=== PATIENT | female | born 1950 | race Caucasian/White ===

== ENCOUNTER 2023-03-04 12:59 | Outpatient (OUT) | payer MEDICARE, SELFPAY ==
--- NOTE | 2023-03-04 13:02 | MM_ITS ---
Patient: BABAR SALAZAR Exam Date: 03/04/2023 : 1950 Gender:F Ordering : Non-Staff Physician Admission #: [id number] Family : HAIM SALAS Order #: [id number] CLICK HERE TO VIEW EXAM RADIOLOGY REPORT PROCEDURE: MM TOMOSYNTHESIS SCREENING BI COMPARISON: MM TOMOSYNTHESIS SCREENING BI, 01/11/2021. MM TOMOSYNTHESIS SCREENING BI, 11/16/2019. INDICATIONS: Screening Calculator Name NCI Breast Cancer Risk Assessment Tool 5 Year Breast Cancer Risk 1.30% Lifetime Breast Cancer Risk 3.90% Personal Breast Cancer No Personal Ovarian Cancer No Treatments None Family Cancers None LOCATION: [facility] BREAST COMPOSITION: Scattered areas fibroglandular density. FINDINGS: DIAGNOSTIC CATEGORY 2--BENIGN FINDING: RIGHT BREAST: No significant suspicious finding. Stable chronic small calcification and surrounding asymmetry within central breast. Stable biopsy marker clip within upper-outer quadrant. No significant change has occurred. LEFT BREAST: No significant suspicious finding. No significant change has occurred. RECOMMENDATIONS: ROUTINE MAMMOGRAM AND CLINICAL EVALUATION IN 12 MONTHS. PLEASE NOTE: A NORMAL MAMMOGRAM DOES NOT EXCLUDE THE POSSIBILITY OF BREAST CANCER. A CLINICALLY SUSPICIOUS PALPABLE LUMP SHOULD BE BIOPSIED. Dictated by: Ajay Mckinnon M.D. on 03/05/2023 at 13:20 Approved by: Ajay Mckinnon M.D. on 03/05/2023 at 13:30
== END 2023-03-04 13:00 | disposition home or self-care (01) ==
PROVIDERS: PCP Internal Medicine
DX: Z12.31 Encounter for screening mammogram for malignant neoplasm of breast (principal)
CPT/HCPCS: 77063; 77067

== ENCOUNTER 2023-08-26 14:54 | Outpatient (OUT) | payer MEDICARE, SELFPAY | END 2023-08-26 14:55 | disposition home or self-care (01) | LOC: PST 14:54 | PROVIDERS: PCP Internal Medicine; Visit Provider Surgery | DX: Z01.818 Encounter for other preprocedural examination (principal); R19.5 Other fecal abnormalities ==

== ENCOUNTER 2023-09-03 07:41 | Day surgery (SDC) | payer MEDICARE, OTHER, SELFPAY ==
--- OUTSIDE RECORDS SUMMARY | 2023-09-03 07:47 | XMS_ITS | CCD ---
Author Name Unknown Address [address] [place] [address] Organization [facility] Care Team Providers Care [employer] Developer Name Role Phone TANNA QUEZADA Unavailable Unavailable TANNA QUEZADA Unavailable Unavailable VALMEHRDAD AMEZCUA Unavailable Unavailable ANISHA IBANEZ Unavailable Unavailable TANNA QUEZADA Unavailable Unavailable AJAY MCKINNON Unavailable Unavailable PHYSICIAN, DEFAULT Unavailable Unavailable PHYSICIAN, DEFAULT Unavailable Unavailable CASTRO MCCONNELL Unavailable Unavailable MEHRDAD SALAS Unavailable Unavailable CASTRO MCCONNELL Unavailable Unavailable MEHRDAD SALAS Unavailable Unavailable CASTRO MCCONNELL Unavailable Unavailable MEHRDAD SALAS Unavailable Unavailable Bao Gorman DO, Charles L Primary Care Provider MATHEW ALLEN Attending Unavailable MEHRDAD SALAS JR Referring Unavailable MEHRDAD SALAS JR Primary Care Unavailable MEHRDAD SALAS JR Referring Unavailable MEHRDAD SALAS JR Primary Care Unavailable Medications Current Medications Medication Drug Class(es) Dates Sig (Normalized) Sig (Original) aspirin 81 mg delayed release oral tablet (1 source) Platelet Aggregation Inhibitor, Nonsteroidal Anti-inflammatory Drug take 1 tablet by mouth in the morning aspirin 81 mg Take 1 tablet (81 mg total) by mouth in the morning. 0 Active Biotin (1 source) take 5000 ug by mouth in the morning BIOTIN ORAL Take 5,000 mcg by mouth in the morning. 0 Active cholecalciferol 0.05 mg oral capsule (1 source) Vitamin D take 1 capsule by mouth in the morning cholecalciferol, vitamin D3, 2,000 units capsule Take 1 capsule (2,000 Units total) by mouth in the morning. 0 Active 0.5 ml dulaglutide 3 mg/ml auto-injector (1 source) GLP-1 Receptor Agonist inject 1.5 mg by subcutaneous injection every week dulaglutide (TRULICITY) 1.5 mg/0.5 mL pen injector Inject 1.5 mg under the skin once a week. 0 Active lansoprazole 15 mg delayed release oral capsule (1 source) Proton Pump Inhibitor take 1 capsule by mouth in the morning lansoprazole (PREVACID) 15 mg capsule Take 1 capsule (15 mg total) by mouth in the morning. 0 Active levothyroxine sodium 0.125 mg oral tablet (2 sources) l-Thyroxine Start: 08-08-2016 take 1 tablet by mouth in the morning levothyroxine (SYNTHROID, LEVOTHROID) 125 MCG tablet Take 1 tablet (125 mcg total) by mouth in the morning. 0 08/08/2016 Active Magnesium (2 sources) Start: 12-23-2017 take 1 tablet by mouth twice daily as needed for headache magnesium 200 mg tablet Indications: Headache behind the eyes 1 tablet po bid as needed for headache. 60 each 2 12/23/2017 Active montelukast 10 mg oral tablet (1 source) Leukotriene Receptor Antagonist take 1 tablet by mouth once daily montelukast (SINGULAIR) 10 mg tablet Take 1 tablet (10 mg total) by mouth nightly. 0 Active omeprazole 20 mg delayed release oral capsule (2 sources) Proton Pump Inhibitor take 1 capsule by mouth in the morning omeprazole (PriLOSEC) 20 mg capsule Take 1 capsule (20 mg total) by mouth in the morning. 0 Active ospemifene 60 mg oral tablet (1 source) take 1 tablet by mouth every other day ospemifene (OSPHENA) 60 mg tablet Take 60 mg by mouth every other day. 0 Active peg 3350-sod sulf,fyxm-muc-llr 178.7-7.3-0.5 gram recon soln (1 source) Start: 08-07-2023 End: 08-08-2023 peg 3350-sod sulf,ipwx-jld-sec 178.7-7.3-0.5 gram recon soln Indications: Positive colorectal cancer screening using Cologuard test Take 1 kit by mouth once daily for 1 dose. Please see instructional sheet given by physicians office. 1 each 0 08/07/2023 08/08/2023 Active potassium 99 mg extended release oral tablet (1 source) take 99 mg by mouth in the morning POTASSIUM ORAL Take 99 mg by mouth in the morning. 0 Active rosuvastatin calcium 40 mg oral tablet (1 source) HMG-CoA Reductase Inhibitor take 1 tablet by mouth in the morning rosuvastatin (CRESTOR) 40 mg tablet Take 1 tablet (40 mg total) by mouth in the morning. 0 Active vitamin b12 1 mg oral tablet (1 source) Vitamin B12 take 1 tablet by mouth in the morning cyanocobalamin (vitamin B-12) 1000 MCG tablet Take 1 tablet (1,000 mcg total) by mouth in the morning. 0 Active vitamin E acetate (VITAMIN E ORAL) (1 source) vitamin E acetat e (VITAMIN E ORAL) Take 400 Int'l Units/day by mouth in the morning. 0 Active Zinc (1 source) take 50 mg by mouth in the morning ZINC ORAL Take 50 mg by mouth in the morning. 0 Active Completed/Discontinued Medications Medication Drug Class(es) Dates Sig (Normalized) Sig (Original) baclofen 10 mg oral tablet (2 sources) gamma-Aminobutyric Acid-ergic Agonist Start: 11-17-2018 End: 08-07-2023 take 1 tablet by mouth four times daily baclofen (LIORESAL) 10 mg tablet Indications: Hemifacial spasm Take 1 tablet po 4 times a day. 120 tablet 2 11/17/2018 08/07/2023 Discontinued (Discontinued by another clinician) 24 hr buPROPion hydrochloride 300 mg extended release oral tablet (2 sources) Aminoketone End: 08-07-2023 take 1 tablet by mouth once daily buPROPion XL (WELLBUTRIN XL) 300 mg 24 hr tablet Take 300 mg by mouth daily. 0 08/07/2023 Discontinued (Discontinued by another clinician) metFORMIN hydrochloride 500 mg oral tablet (2 sources) Biguanide End: 08-07-2023 take 1 tablet by mouth twice daily at mealtime metFORMIN (GLUCOPHAGE) 500 mg tablet Take 1 tablet by mouth 2 (two) times a day with meals. 0 08/07/2023 Discontinued (Discontinued by another clinician) pravastatin sodium 20 mg oral tablet (2 sources) HMG-CoA Reductase Inhibitor Start: 12-18-2017 End: 08-07-2023 take 1 tablet by mouth once daily pravastatin (PRAVACHOL) 20 mg tablet Take 20 mg by mouth daily. 0 12/18/2017 08/07/2023 Discontinued (Discontinued by another clinician) Problems Active Problems Problem Classification Problem Date Documented Date Episodic/Chronic Abdominal pain (4 sources) Right lower quadrant pain; Translations: [Unspecified abdominal pain] Onset: 11-18-19 Episodic Esophageal disorders (1 source) Gastro-esophageal reflux disease without esophagitis; Translations: [GERD WITHOUT ESOPHAGITIS] Onset: 11-20-19 Chronic External Injury - Natural / Environment (1 source) Exposure to other specified factors, initial encounter; Translations: [EXPOSURE OTHER SPEC FACTORS INITIAL] Onset: 11-20-19 Nausea and vomiting (1 source) Nausea; Translations: [NAUSEA] Onset: 11-20-19 Episodic Nonspecific chest pain (1 source) Chest pain, unspecified; Translations: [CHEST PAIN UNSPECIFIED] Onset: 11-20-19 Episodic Other aftercare (1 source) Other intermediate school teacher (current) drug therapy; Translations: [OTH CUSTODIAL CURRENT DRUG THERAPY] Onset: 11-20-19 Episodic Other gastrointestinal disorders (1 source) Stool DNA-based colorectal cancer screening positive; Translations: [Other fecal abnormalities] 08-07-2023 Episodic Other gastrointestinal disorders (1 source) Other fecal abnormalities; Translations: [Other fecal abnormalities] Onset: 08-07-19 Episodic Other lower respiratory disease (1 source) Shortness of breath; Translations: [SHORTNESS OF BREATH] Onset: 11-20-19 Episodic Other nervous system disorders (1 source) Clonic hemifacial spasm, bilateral; Translations: [Clonic hemifacial spasm, bilateral] Onset: 08-14-19 Episodic Sprains and strains (1 source) Strain of muscle, fascia and tendon of lower back, initial encounter; Translations: [STRAIN MUSC FASC TENDON LW BACK INT] Onset: 11-20-19 Episodic Thyroid disorders (1 source) Hypothyroidism, unspecified; Translations: [HYPOTHYROIDISM UNSPECIFIED] Onset: 11-20-19 Chronic Unclassified (1 source) Abnormal coagulation profile; Translations: [ABNORMAL COAGULATION PROFILE] Onset: 11-20-19 Episodic Unclassified (1 source) Pure hypercholesterolemia, unspecified; Translations: [PURE HYPERCHOLESTEROLEMIA UNSPEC] Onset: 11-20-19 Unclassified (1 source) Positive Cologuard Onset: 08-07-19 Past or Other Problems Problem Classification Problem Date Documented Da te Episodic/Chronic Headache, including migraine (1 source) Headache; Translations: [Headache] Onset: 01-30-2017 Episodic Mood disorders (2 sources) Mood disorders Onset: 10-27-2018 10-27-2018 Other nervous system disorders (1 source) Facial myokymia; Translations: [Facial myokymia] Onset: 01-30-2017 Episodic Unclassified (2 sources) Onset: 06-28-2019 06-28-2019 Results Test Name Value Interpretation Reference Range Facility CBC AUTO DIFFon 11-17-2017 Basophils Auto #/vol (Bld) 0.1 103/ul Normal 0.0-0.1 [facility] Comment on above: Performed By: #### C BC ####[facility] Tbpsbglmuw4199 [address] [place] Basophils/100 WBC Auto (Bld) 1.3 % Normal 0.2-2.0 [facility] Comment on above: Performed By: #### C BC ####[facility] [address] [place], [place] [address]Gerken [place] Eosinophils 0.4 103/ul Normal 0.0-0.7 [facility] Comment on above: Performed By: #### C BC ####[facility] [address] [place] [address] [place] Eosinophils/100 leukocytes 4.6 % Normal 0.9-7.0 [facility] Comment on above: Performed By: #### C BC ####[facility] [address] [place] [address] [place] Erythrocyte distribution width Auto Ratio (RBC) 12.6 % Normal 11.0-15.0 [facility] Comment on above: Performed By: #### C BC ####[facility] [address] [place], [place] [id number] [place] Erythrocytes (RBC) 4.04 106/ul Critically low 4.20-5.40 [facility] Comment on above: Performed By: #### C BC ####[facility] [address] [place] [id number] [place] Hematocrit (HCT) 36.6 % Normal 36.0-48.0 [facility] Comment on above: Performed By: #### C BC ####[facility] [address] [place], [place] [address]Gerken [place] Hemoglobin mass conc (Bld) 12.2 g/dL Normal 12.0-16.0 [facility] Comment on above: Performed By: #### C BC ####[facility] Ecqflmwxvt6393 [address] [place] IG # 0.04 10e3/ul Critically high 0.00-0.03 [facility] Comment on above: Performed By: #### C BC ####[facility] Achcnyhihv[address]370 [address] [place] IG % 0.5 % Normal 0.0-0.5 [facility] Comment on above: Performed By: #### C BC ####[facility] [address] [place] [address] [place] Lymphocytes 2.8 103/ul Normal 1.2-3.8 [facility] Comment on above: Performed By: #### C BC ####[facility] [address] [place], [place] [address]en Lymphocytes/100 leukocytes 33.7 % Normal 20.5-60.0 [facility] Comment on above: Performed By: #### C BC ####[facility] [address] [place] [address] [place] MANUAL DIFF REQ NO Normal [facility] Comment on above: Performed By: #### C BC ####[facility] [address]pe[address] [place], [place] [address]en MCH 30.2 pg Normal 26.7-34.0 [facility] Comment on above: Performed By: #### C BC ####[facility] [address]oun[address]isms[address] [place] [address] [place] MCHC mass conc (RBC) 33.3 g/dL Normal 29.9-35.2 [facility] Comment on above: Performed By: #### C BC ####[facility] [address] [place] [address] [place] MCV 90.6 fL Normal 81.0-99.0 [facility] Comment on above: Performed By: #### C BC ####[facility] [address]dieg[address] [place], [place] [address]Ctfddw [place] Monocytes 0.8 103/ul Normal 0.3-0.8 [facility] Comment on above: Performed By: #### C BC ####[facility] Brsecghkrs9259 [place], [place] [address]Tarewv [place] Monocytes/100 leukocytes 10.1 % Normal 1.7-12.0 [facility] Comment on above: Performed By: #### C BC ####[facility] [address]uvlecxauv9666 [place], [place] [address]Nyhihi [place] Neutrophils 4.1 103/ul Normal 1.4-6.5 [facility] Comment on above: Performed By: #### C BC ####[facility] [address]jjn4305 [place], [place] [address]Sdfawi [place] Neutrophils/100 WBC Auto (Bld) 49.8 % Normal 43.0-75.0 [facility] Comment on above: Performed By: #### C BC ####[facility] Ktvlfsjuue3685 [place], [place] [address]Qaldam [place] Platelet mean volume (PMV) 9.5 fL Normal 9.5-13.5 [facility] Comment on above: Performed By: #### C BC ####[facility] Trronfream4182 [place], [place] [address]Abxchs [place] Platelets 300 103/ul Normal 150-450 [facility] Comment on above: Performed By: #### C BC ####[facility] Fldkusnrps6244 [place], [place] [address]Xuosbk [place] WBC (Leukocytes) 8.2 103/ul Normal 4.0-11.0 [facility] Comment on above: Performed By: #### C BC ####[facility] I[address]acsavmm3660 [place], [place] [address] [place] CT ABD/PELVIS WO CONon 11-17 CT ABD/PELVIS WO CON [address] [place] [address] Patient: EMILY MELGARLo Exam Date: 11/17/2017DOB: 1950 Gender:F : DR TANNA QUEZADA D.O. Admission #: [id number] : DR MEHRDAD SALAS Order #: [id number] HERE TO VIEW EXAM RADIOLOGY REPORT PROCEDURE: CT ABDOMEN AND PELVIS WITHOUT CONTRAST COMPARISON: None. INDICATIONS: Acute posterior right lower quadrant pain, nausea, shortness of breath TECHNIQUE: Axial, Coronal, and Sagittal images were created without IV contrast. DOSE: 731 mGycm FINDINGS: LUNG BASES: No visible pulmonary or pleural disease. LIVER: No enlargement, atrophy, abnormal density, or significant focal lesion. BILIARY: No visible dilatation or calcification. PANCREAS: No lesion, fluid collection, ductal dilatation, or atrophy. SPLEEN: No enlargement or focal lesion. ADRENALS: No mass or enlargement. KIDNEYS: No mass, obstruction, or calcification. BOWEL/MESENTERY: Prior colon resection and anastomosis. No visible mass, obstruction, or bowel wall thickening. Prior appendectomy. Unremarkable stomach and small bowel.AORTA/VASCULAR: No aneurysm or dissection. RETROPERITONEUM: No mass or adenopathy. LYMPH NODES: No adenopathy. URINARY BLADDER: No visible focal wall thickening, lesion, or calculus. PELVIC ORGANS: Hysterectomy.ABDOMINA L WALL: No mass or hernia. BONES: No bone lesion or fracture. OTHER: Negative. CONCLUSION: 1. No acute or suspicious findings to account for the patient's symptoms. Dictated by: Ajay Mckinnon M.D. on 11/17/2017 at 19:34 Approved by: Ajay Mckinnon M.D. on 11/17/2017 at 19:45 Normal [facility] CTA CHEST W CONon 11-17-2017 CTA CHEST W CON [address] [place] [address] Patient: EMILY MELGAR Exam Date: 11/17/2017DOB: 1950 Gender:F : DR ANISHA IBANEZ Admission #: [id number] : DR TANNA QUEZADA D.O. Order #: [id number] HERE TO VIEW EXAM RADIOLOGY REPORT PROCEDURE: CTA CHEST WITHOUT AND WITH CONTRAST COMPARISON: XR CHEST 2 V, 11/17/2017. INDICATIONS: Acute right posterior chest pain and shortness of breath for three days TECHNIQUE: Multi-planar CT images were created with IV contrast. Axial, Coronal, and Sagittal images. DOSE: 330mGycm;53cc Omnipaque 350 FINDINGS: VASCULATURE: No pulmonary embolism or abnormal opacity.LUNGS: Incidental calcified granuloma within the lingula. No visible pulmonary disease. PLEURA: No mass, effusion, or pneumothorax. SEBASTIAN: No mass or adenopathy. MEDIASTINUM: No mass or adenopathy. CARDIAC: No enlargement, pericardial effusion, or pericardial thickening.AORTA: No aneurysm or dissection. CHEST WALL: No mass or axillary adenopathy. BONES: No bone lesion or fracture. LIMITED ABDOMEN: No suspicious findings. Limited images of the upper abdomen.OTHER: Negative. CONCLUSION: 1. No pulmonary embolism.2. No pulmonary infiltrate or suspicious process to account for the patient's symptoms. Dictated by: Ajay Mckinnon M.D. on 11/17/2017 at 21:57 Approved by: Ajay Mckinnon M.D. on 11/17/2017 at 22:01 Normal [facility] D-DIMERon 11-17-2017 D-DIMER COMMENTS SEE BELOW Normal [facility] Comment on above: Result Comment: Incr eases in D-Dimer concentration observed with thromboembolic events can be variable due to localization, size, and age of the thrombus. Therefore, a thromboembolic event cannot be diagnosed with certainty on the basis of the reference range. D-Dimers may also be elevated for a variety of disorders including: advanced age, , coronary disease, cancer, liver disease, infection, inflammation, hematoma, DIC, trauma, post-surgery, diabetes, thrombolytic or anticoagulant therapy, stress, and generalizd hospitalization. Performed By: #### D DIM ####[facility] [address]23[address] [place], [place] [address]YbrztzChristel [place] Fibrin D-dimer FEU 0.89 ug/mL Critically high 0.19-0.50 [facility] Comment on above: Result Comment: Test Repeated. Critical Value Verified Performed By: #### D DIM ####[facility] Mqpncyshzq4448 [place], [place] [address]TfjvuxChristel [place] ER URINE PROFILEon 8 Bilirubin (total) Negative Normal NEGATIVE [facility] Comment on above: Performed By: #### ELEONROA CURTIS ####[facility] Qhxlwzhchj36[address] [place] BLOOD Negative Normal NEGATIVE [facility] Comment on above: Performed By: #### ELEONORA CURTIS ####[facility] [address] [place] [id number] [place] ERUAHD A micrscopic examination will be performed if indicated. Normal [facility] Comment on above: Performed By: #### ELEONORA CURTIS ####[facility] Zpgyvtiivn1652 [address] [place] Glucose mass conc Negative Normal NEGATIVE [facility] Comment on above: Performed By: #### ELEONORA CURTIS ####[facility] [address] [place] [address] [place] pH of blood 6.5 [pH] Normal 5-9 [facility] Comment on above: Performed By: #### ELEONORA CURTIS ####[facility] [address] [place] [address] [place] Protein Negative Normal [facility] Comment on above: Performed By: #### ELEONORA CURTIS ####[facility] [address] [place] [address] [place] SPEC GRAVITY <=1.005 Normal 1.005-<=1.025 [facility] Comment on above: Performed By: #### ELEONORA CURTIS ####[facility] Stmudvnisi[address]337 [address] [place] UR MICRO IND INDICATED Normal [facility] Comment on above: Performed By: #### ELEONORA CURTIS ####[facility] Shxxseaoad4970 [address] [place] Urine, clarity CLEAR Normal [facility] Comment on above: Performed By: #### ELEONORA CURTIS ####[facility] Zllebxbksd4827 [address] [place] Urine, color LT. YELLOW Normal YELLOW [facility] Comment on above: Performed By: #### Thao NAVARRO UMICRO ####[facility] [address] [place] [id number] [place] Urine, ketones presence Negative Normal NEGATIVE [facility] Comment on above: Performed By: #### Thao NAVARRO UMICRO ####[facility] [address] [place] [id number] Valdesen Urine, nitrite presence Negative Normal NEGATIVE [facility] Comment on above: Performed By: #### E MAME NAVARROICRO ####[facility] [address] [place] [address]Christel [place] Urine, urobilinogen 0.2 {Terell'U}/dL Normal [facility] Comment on above: Performed By: #### GERTRUDE CURTISRO ####[facility] Ibkolbqthp3155 [address] [place] WBC (Leukocytes) TRACE Normal NEGATIVE [facility] Comment on above: Performed By: #### GERTRUDE CURTISRO ####[facility] [address] [place] [address]Christel [place] LIPASEon 11-17-2017 Lipase 53.0 U/L Normal 23.0-300.0 [facility] Comment on above: Performed By: #### L IPA, CMP ####[facility] Ueujitgtyz[address]687 [address] [place] PROF 14(COMP METB)on 018 Alanine aminotransferase (ALT) 22 U/L Normal 9-52 [facility] Comment on above: Performed By: #### L IPA, CMP ####[facility] Fputowamdr9405 [address] [place] Albumin 4.5 g/dL Normal 3.5-5.0 [facility] Comment on above: Performed By: #### L IPA, CMP ####[facility] Fsoccelthb5278 [address] [place] Albumin/Globulin Ratio 1.6 {ratio} Normal [facility] Comment on above: Performed By: #### L IPA, CMP ####[facility] Mlbyiuxgzo[address]18 [address] [place] Alkaline phosphatase (ALP) 74 U/L Normal 38-126 [facility] Comment on above: Performed By: #### L IPA, CMP ####[facility] Zneddpovyp8229 [address] [place] Anion gap 11.1 mmol/L Normal [facility] Comment on above: Performed By: #### L IPA, CMP ####[facility] Mtmtqcttvb1040 [address] [place] Aspartate aminotransferase (AST) 18 U/L Normal 14-36 [facility] Comment on above: Performed By: #### L IPA, CMP ####[facility] [address] [place] [address] [place] Bilirubin Ql (U) 0.4 mg/dL Normal 0.2-1.3 [facility] Comment on above: Performed By: #### L IPA, CMP ####[facility] [address] [place] [address] [place] BUN/Creatinine Ratio 12.7 mg/mg Normal [facility] Comment on above: Performed By: #### L IPA, CMP ####[facility] [address] [place] [address] [place] Calcium 9.9 mg/dL Normal 8.4-10.2 [facility] Comment on above: Performed By: #### L IPA, CMP ####[facility] Xghezpvodo4005 [address] [place] Chloride 99 mmol/L Normal 98-107 [facility] Comment on above: Performed By: #### L IPA, CMP ####[facility] [address] [place] [address] [place] CO2 30.0 mmol/L Normal 22.0-30.0 [facility] Comment on above: Performed By: #### L IPA, CMP ####[facility] [address] [place] [address] [place] Creatinine 0.63 mg/dL Normal 0.52-1.04 [facility] Comment on above: Performed By: #### L IPA, CMP ####[facility] [address] [place] [id number] [place] eGFR (non-black) mL/min/{1.73_m2} Normal >=60 Th [facility] Comment on above: Performed By: #### L IPA, CMP ####[facility] Zjwxyioczz0703 [address] [place] Globulin 2.8 g/dL Normal [facility] Comment on above: Performed By: #### L IPA, CMP ####[facility] Amjdggmxiy0279 [address] [place] Glucose mass conc 98 mg/dL Normal 74-106 [facility] Comment on above: Performed By: #### L IPA, CMP ####[facility] Jthxyeytna[address]62 [address] [place] Potassium molar conc 4.3 mmol/L Normal 3.4-5.0 [facility] Comment on above: Performed By: #### L IPA, CMP ####[facility] Rdorxipeqy[address]05 [address] [place] Protein 7.3 g/dL Normal 6.1-8.2 [facility] Comment on above: Performed By: #### L IPA, CMP ####[facility] Wgwtwomqcu3960 [address] [place] Sodium 136 mmol/L Critically low 137-145 [facility] Comment on above: Performed By: #### L IPA, CMP ####[facility] Vfbpfaiudq[address]22 [address] [place] Urea nitrogen 8.0 mg/dL Normal 7.0-17.0 [facility] Comment on above: Performed By: #### L IPA, CMP ####[facility] Paqnmsybov[address] [place] URINE MICROSCOPIC ONLYon CAST NONE SEEN Normal NONE SEEN [facility] Comment on above: Performed By: #### GERTRUDE CURTISRO ####[facility] [address]ijscre2320 [place], [place] [address]Qfygcb [place] CULTURE NOT INDICATED Normal The [facility] Comment on above: Performed By: #### MAME CURTISICRO ####[facility] [address]usrhjfd4210 [place], [place] [address]Anbmlf [place] Erythrocytes (RBC) NONE SEEN Normal 0-2 [facility] Comment on above: Performed By: #### GERTRUDE CURTISRO ####[facility] [address] [place], [place] [address]Ewnueo Alda MUCOUS NONE SEEN Normal NONE SEEN [facility] Comment on above: Performed By: #### GERTRUDE CURTISRO ####[facility] [address] [place], [place] [address]Tculyl Alda Urine, bacteria in sediment NONE SEEN Normal NONE SEEN [facility] Comment on above: Performed By: #### GERTRUDE CURTISRO ####[facility] [address] [place], [place] [address]Sjroyu Alda Urine, crystals in sediment NONE SEEN Normal NONE SEEN [facility] Comment on above: Performed By: #### GERTRUDE CURTISRO ####[facility] [address] [place], [place] [address]Gjtfmn Alda Urine, epithelial cells in sediment FEW Normal [facility] Comment on above: Performed By: #### GERTRUDE CURTISRO ####[facility] [id number] [place] [id number] Alda WBC (Leukocytes) 0-2 Normal NONE SEEN [facility] Comment on above: Performed By: #### GERTRUDE CURTISRO ####[facility] [id number] [place] [id number] Alda XR CHEST 2 Von 11-17-2017 XR CHEST 2 V [address] [place] [address] Patient: EMILY MELGARLo Exam Date: 11/17/2017DOB: 1950 Gender:F : DR TANNA QUEZADA D.O. Admission #: [id number] : DR WHITMORE AlenLo BAO Order #: [id number] HERE TO VIEW EXAM RADIOLOGY REPORT PROCEDURE: RADIOGRAPH CHEST 2 VIEWS COMPARISON: XR CHEST 2 V, 05/27/2013. INDICATIONS: Acute pleurodynia, posterior right lower side chest pain, shortness of breath FINDINGS: LUNGS: Calcified granuloma within the left mid lung. No significant pulmonary parenchymal abnormalities. VASCULATURE: No increased pulmonary vasculature. PLEURA: No pneumothorax, effusion, or pleural thickening. CARDIAC: No cardiomegaly or cardiac silhouette abnormality. MEDIASTINUM: No visible mass or adenopathy. BONES: Mechanical stabilization of the lower cervical spine.OTHER: Negative. CONCLUSION: 1. No acute cardiopulmonary process. Dictated by: Ajay Mckinnon M.D. on 11/17/2017 at 21:57 Approved by: Ajay Mckinnon M.D. on 11/17/2017 at 22:02 Normal [facility] MRA HEAD W CONTRASTon 2016 MRA HEAD W CONTRAST REPORT: MRA brain with contrastTECHNIQUE: MRA through the brain performed after administration of 15 mL of OptiMARK IV as per protocol. Isotropic axial and 3-dimensional rotational reconstructions were made from the source images of the cerebral vasculature. INDICATION: Headache above the eye region, facial myokymiaFINDINGS: Patent flow signal is seen in the anterior and posterior circulation of the brain. Both intracranial internal carotid arteries are patent and normal. Conventional anterior circulation anatomy. The M1, M2 and M3 segments are patent and symmetric to the terminal branches. The paired anterior cerebral arteries are normal. Conventional posterior circulation anatomy. Vertebrobasilar system is within normal limits. No evidence of stenosis or aneurysm. Patent flow signal is seen in the dural venous sinuses.Final report electronically signed by Naida Jensen on 01/30/2017 2:42 PMIMPRESSION: Normal MRA brainInterpreted by:ARIANNE Solisigned by:Naida Jensen MD01/30/17Final result [facility] MRI BRAIN W WO CONTRASTon MRI BRAIN W WO CONTRAST MRI BRAIN WITH AND WITHOUT CONTRASTTECHNIQUE: Multiplanar multisequence magnetic resonance imaging of the brain performed with and without contrast. A total of 15 mL Optimark was administered IV as per protocol.INDICATION: Headache above the eye region, facial myokymiaFINDINGS: No evidence of acute infarction, hemorrhage or mass lesion. No abnormal enhancement is seen. Few scattered foci of FLAIR signal intensity in the deep white matter of both cerebral hemispheres typical of chronic age-related white matter changes. No abnormal hemosiderin deposition. No foci of restricted diffusion. Ventricles and cortical sulci are appropriate in size and contour. Flow voids are patent at the skull base. Corpus callosum is intact. Pituitary gland is present and normal. Paranasal sinuses and mastoid air cells are clear. 1. No acute intracranial process2. Few age-related white matter changesFinal report electronically signed by Naida Jensen on 01/30/2017 2:40 PMInterpreted by:ARIANNE Solisigned by:Naida Jensen MD01/30/17Final result [facility] Vital Signs Date Time Vital Sign Value Performing Clinician Sarahi kaitlyn 08-07-2023 14:30-0500 Body height 160 cm Mathew SCHAFFER Work Phone: [facility] 08-07-2023 14:30-0500 Body mass index (BMI) [Ratio] 28.87 kg/m2 Mathew SCHAFFER Work Phone: [facility] 08-07-2023 14:30-0500 Body weight 73.94 kg Mathew SCHAFFER Work Phone: [facility] 08-07-2023 14:30-0500 Diastolic blood pressure 70 mm[Hg] Mathew Allen APRN-HERBERT Work Phone: [facility] 08-07-2023 14:30-0500 Heart rate 82 /min Mathew SCHAFFER Work Phone: [facility] 08-07-2023 14:30-0500 Systolic blood pressure 127 mm[Hg] Mathew Allen APRN-HERBERT Work Phone: [facility] Encounters Encounter Date Encounter Type Care Provider Facility Start: 2023 End: 08-15-2023 ambulatory MEHRDAD SALAS [facility] Start: 08-07-2023 End: 08-07-[address] [facility] Ron ALLEN [facility] Start: 08-07-2023 End: 08-07-2023 Office outpatient new 30 minutes Mathew Allen COMPOSER TEACHING ARTIST-IN HOME AIDE Work Phone: [facility] Comment on above: Positive colorectal cancer screening using Cologuard test (Primary Dx) Start: 07-23-2023 Telephone encounter Mathew Allen COMPOSER TEACHING ARTIST-IN HOME AIDE Work Phone: [facility] Start: 11-17-2017 End: 11-18-2017 Ambulatory TANNA QUEZADA Facility: Start: 04-21-2017 End: 04-22-2017 Ambulatory DEFAULT PHYSICIAN Facility:[facility] Start: 01-30-2017 End: 01-31-2017 Ambulatory CASTRO MCCONNELL [facility] Procedures Date Procedure Procedure Detail Performing Clinician Start: 01-30-2017 Mra head w/contrast material CASTRO MCCONNELL Start: 01-30-2017 Mri brain brain stem w/o w/contrast material CASTRO MCCONNELL Plan of Treatment Date Care Activity Detail Author Start: 08-07-2024 Adult BMI Screening Adult BMI Screen ing [facility] Start: 08-07-2024 Tobacco Screening Tobacco Screening [facility] Start: 09-03-2023 End: 09-03-2023 Patient encounter procedure 09/03/2023 10:00 AM EST Procedure visit [facility] [address] [place] [address] Chau Ribeiro DO [address] [place], [place] [id number] [facility] Start: 2023 End: 2023 Patient encounter procedure 2023 11:30 AM EST Appointment [facility] - Neurophysiology [address] [address] [facility] [place] [facility] Neuro[facility] Start: 08-07-2023 End: 08-07-2023 Patient encounter procedure 08/07/2023 2:30 PM EST Office Visit [facility] [address] [place] [id number] Mathew Allen, COMPOSER TEACHING ARTIST-IN HOME AIDE [address] [place], [place] [id number] [facility] Start: 03-14-2023 COVID-19 Vaccine ( season) COVID-19 Vaccine () [facility] Start: 03-14-2023 Influenza vaccination Influenza Vaccine [facility] Start: 01-11-2022 Adult BMI Screening Adult BMI Screen ing [facility] Start: 2017 Fall Risk Screening Fall Risk Screen ing [facility] Start: 1971 DTaP,Tdap and Td Vaccines (1 - Tdap) DTaP,Tdap and Td Vaccines (1 - Tdap) [facility] Start: 1970 Adult BMI Follow Up Plan Adult BMI Follow Up Plan [facility] Start: 1964 Depression Screening Depression Scre ening [facility] Start: 1964 Tobacco Screening Tobacco Screening [facility] Start: 1950 Medicare Annual Wellness Visit Medicare Annual Wellness Visit [facility] End: 08-07-2024 EGD / Colonoscopy EGD / Colonoscopy GI Routine Positive colorectal cancer screening using Cologuard test 1 Occurrences starting 08/07/2023 until 08/07/2024 [facility] Work Phone: Comment on above: 1 Occurrences starti ng 08/07/2023 until 08/07/2024 Payers Date Payer Category Payer Medicare MEDICARE MEDICAR E PART A & B [id number] 2017-Present [phone] [address] [place] [address] [id number] 2017 Medicare [id number] 2015 Unknown [id number] 1959 Medicare [id number] 1950 Unknown [id number] 1950 Unknown [id number] Unknown Unknown [id number] Social History Date Type Detail Facility Start: 12-23-2017 End: 08-07-2023 Tobacco smoking status NHIS Ex-smoker [facility] End: 07-14-2007 History of tobacco use Current smoker [facility] Start: 12-23-2017 End: 08-07-2023 Tobacco use and exposure Smokeless tobacco non-user [facility] Start: 01-11-2021 End: 08-07-2023 Alcohol intake Current drinker of alcohol (finding) [facility] Start: 08-24-2020 End: 01-11-2021 History of Social function [facility] Start: 08-24-2020 End: 01-11-2021 Tobacco use panel [facility] Adolescent depressio n screening assessment 0 [facility] Start: 1950 Sex Assigned At Not on file [facility] End: 07-14-2007 History of tobacco use Cigarette Smoker [facility] Start: 08-07-2023 Alcohol Comment socially [facility] History of Present illness Narrative 08-07-2023 Mathew Allen, COMPOSER TEACHING ARTIST-IN HOME AIDE - 08/07/2023 2:30 PM EST Note Date & Type Note Facility 08-07-2023 History of Present illness Narrative Chief Complaint: Positive Cologuard History of Present Illness Emily Melgar is a 72 y.o. female who presents to the office for positive Cologuard. She denies any changes in her bowels including diarrhea, constipation, abdominal pain, melena, hematochezia, unexplained weight loss. She reports an upset stomach after eating. She denies any nausea or vomiting. Her last colonoscopy was 20 years ago. There is no family history of colon cancer. Review of Systems Constitutional: Negative for fever and unexpected weight change. HENT: Negative for trouble swallowing. Respiratory: Negative for shortness of breath. Cardiovascular: Negative for chest pain and palpitations. Gastrointestinal: Negative for nausea, vomiting, abdominal pain, diarrhea, constipation, blood in stool and black tarry stool. Genitourinary: Negative for dysuria and difficulty urinating. Musculoskeletal: Negative for joint swelling and gait problem. Skin: Negative for rash and wound. Allergic/Immunologic: Negative for immunocompromised state. Neurological: Negative for dizziness, weakness and light-headedness. Hematological: Does not bruise/bleed easily. Psychiatric/Behavioral: Negative for behavioral problems and confusion. Past Medical History: Diagnosis Date Allergic Back pain Depression Disease of thyroid gland GERD (gastroesophageal reflux disease) Past Surgical History: Procedure Laterality Date ANKLE SURGERY APPENDECTOMY BACK SURGERY BLADDER SURGERY bladder mesh BREAST BIOPSY Right 2001 BENIGN BREAST BIOPSY Right STEREOTACTIC BENIGN CARPAL TUNNEL RELEASE SECTION x2 HYSTERECTOMY 1983 PARTIAL KNEE SURGERY NECK SURGERY TUBAL LIGATION No Known Allergies Current Outpatient Medications: aspirin 81 mg, Take 1 tablet (81 mg total) by mouth in the morning., Disp: , Rfl: BIOTIN ORAL, Take 5,000 mcg by mouth in the morning., Disp: , Rfl: cholecalciferol, vitamin D3, 2,000 units capsule, Take 1 capsule (2,000 Units total) by mouth in the morning., Disp: , Rfl: cyanocobalamin (vitamin B-12) 1000 MCG tablet, Take 1 tablet (1,000 mcg total) by mouth in the morning., Disp: , Rfl: dulaglutide (TRULICITY) 1.5 mg/0.5 mL pen injector, Inject 1.5 mg under the skin once a week., Disp: , Rfl: lansoprazole (PREVACID) 15 mg capsule, Take 1 capsule (15 mg total) by mouth in the morning., Disp: , Rfl: levothyroxine (SYNTHROID, LEVOTHROID) 125 MCG tablet, Take 1 tablet (125 mcg total) by mouth in the morning., Disp: , Rfl: magnesium 200 mg tablet, 1 tablet po bid as needed for headache. (Patient taking differently: Take 250 mg by mouth in the morning. 1 tablet po bid as needed for headache..), Disp: 60 each, Rfl: 2 montelukast (SINGULAIR) 10 mg tablet, Take 1 tablet (10 mg total) by mouth nightly., Disp: , Rfl: omeprazole (PriLOSEC) 20 mg capsule, Take 1 capsule (20 mg total) by mouth in the morning., Disp: , Rfl: ospemifene (OSPHENA) 60 mg tablet, Take 60 mg by mouth every other day., Disp: , Rfl: POTASSIUM ORAL, Take 99 mg by mouth in the morning., Disp: , Rfl: rosuvastatin (CRESTOR) 40 mg tablet, Take 1 tablet (40 mg total) by mouth in the morning., Disp: , Rfl: vitamin E acetate (VITAMIN E ORAL), Take 400 Int'l Units/day by mouth in the morning., Disp: , Rfl: ZINC ORAL, Take 50 mg by mouth in the morning., Disp: , Rfl: peg 3350-sod sulf,wvsn-hvz-juw 178.7-7.3-0.5 gram recon soln, Take 1 kit by mouth once daily for 1 dose. Please see instructional sheet given by physicians office., Disp: 1 each, Rfl: 0 Social History Socioeconomic History Marital status: Spouse name: Not on file Number of children: Not on file Years of education: Not on file Highest education level: Not on file Occupational History Not on file Tobacco Use Smoking status: Former Packs/day: 1.00 Years: 30.00 Additional pack years: 0.00 Total pack years: 30.00 Types: Cigarettes Quit date: 2007 Years since quittin.0 Smokeless tobacco: Never Vaping Use Vaping Use: Never used Substance and Sexual Activity Alcohol use: Yes Comment: socially Drug use: No Sexual activity: Yes Partners: Male control/protection: Surgical Other Topics Concern Not on file Social History Narrative Not on file Social Determinants of Health Financial Resource Strain: Not on file Food Insecurity: Unknown (08/07/2023) Hunger Screening Food Insecurity - Worry: Never True Food Insecurity - Inability: Not on file Transportation Needs: Not on file Physical Activity: Not on file Stress: Not on file Social Connections: Not on file Interpersonal Safety: Not on file Housing Instability: Not on file Family History Problem Relation Age of Onset Breast cancer Other 47 No Known Problems Mother No Known Problems Father Objective Physical Exam Constitutional: Appearance: Normal appearance. HENT: Head: Normocephalic and atraumatic. Mouth/Throat: Mouth: Mucous membranes are moist. Eyes: Pupils: Pupils are equal, round, and reactive to light. Cardiovascular: Rate and Rhythm: Normal rate and regular rhythm. Pulmonary: Effort: Pulmonary effort is normal. No respiratory distress. Abdominal: General: Bowel sounds are normal. There is no distension. Palpations: Abdomen is soft. Tenderness: There is no abdominal tenderness. Musculoskeletal: General: Normal range of motion. Cervical back: Normal range of motion. Skin: General: Skin is warm and dry. Neurological: Mental Status: She is alert and oriented to person, place, and time. Mental status is at baseline. Vital Signs: Blood pressure 127/70, pulse 82, height 160 cm (5' 3 ), weight 73.9 kg (163 lb). Respiratory Source: No data recorded Admission Weight: Weight: 73.9 kg (163 lb) Labs Lab Results Component Value Date WBC 6.9 08/12/2016 HGB 12.6 08/12/2016 HCT 37.9 08/12/2016 MCV 89 08/12/2016 PLT 330 08/12/2016 Lab Results Component Value Date GLU 95 03/30/2015 CALCIUM 9.3 03/30/2015 K 4.3 08/12/2016 CO2 29 08/12/2016 CL 98 08/12/2016 BUN 9 08/12/2016 CREATININE 0.69 08/12/2016 No results found for: AMYLASE No results found for: LIPASE Lab Results Component Value Date ALT 14 03/30/2015 AST 18 03/30/2015 No results found for: INR , PROTIME Assessment Emily Melgar is a 72 y.o.female with positive Cologuard. Plan EGD and colonoscopy with possible biopsy and/or polypectomy. Risks, benefits, and alternatives discussed with patient. Educated on bowel evacuation preparation. Patient verbalizes understanding and wishes to proceed. Stop aspirin 7 days prior to procedure. Evaluation included: Preparing to see the patient (e.g., review of tests) Obtaining and/or reviewing separately obtained history Performing a medically appropriate examination and/or evaluation Counseling and educating the patient/family/caregiver Referring and communicating with other health career development consultant Positive colorectal cancer screening using Cologuard test [R19.5] MATHEW ALLEN, COMPOSER TEACHING ARTIST-IN HOME AIDE [facility] [place] This note was created with the assistance of a speech recognition program. While intending to generate a timely document that accurately reflects the content of the visit, no guarantee can be provided that every grammatical or spelling mistake has been or will be identified or corrected. Thank you for your understanding. SARBJIT Alcaraz 08/07/23 1555 documented in this encounter [facility] Note 07-23-2023 Telephone Encounter - Jeannette Lockhart - 07/23/2023 11:38 AM ESTTelephone Encounter - Jeannette Lockhart - 07/23/2023 11:38 AM EST Note Date & Type Note Facility 07-23-2023 Miscellaneous Notes Formattin g of this note might be different from the original. Called Emily regarding the positive cologuard referral that our office received from Dr. Salas, I left a message on her voicemail to call the office back to schedule an appointment. Eboni called the office back and we scheduled her an appointment on 08/07/2023. documented in this encounter [facility] Telephone encounter Note 07-23-2023 Telephone Encounter - Jeannette Lockhart - 07/23/2023 11:38 AM EST Note Date & Type Note Facility 07-23-2023 Telephone encount er Note Called Emily regarding the positive cologuard referral that our office received from Dr. Salas, I left a message on her voicemail to call the office back to schedule an appointment. [facility] Telephone encounter Note 07-23-2023 Telephone Encounter - Jeannette Lockhart - 07/23/2023 11:38 AM EST Note Date & Type Note Facility 07-23-2023 Telephone encount er Note Eboni called the office back and we scheduled her an appointment on 08/07/2023. [facility] Evaluation note Note Date & Type Note Facility Evaluation note Diagnosis Positive colorectal cancer screening using Cologuard test- Primary documented in this encounter [facility] Instructions Note Date & Type Note Facility Instructions Not on filedocumented in this en counter [facility] Instructions Note Date & Type Note Facility Instructions Not on filedocumented in this en counter [facility] Summary Purpose Family History No Family History Records FoundNo Family History Records FoundNo Family History Records FoundNo Family History Records FoundNo Family History Records Found Advance Directives No Advanced Directives Records FoundNo Advanced Directives Records FoundNo Advanced Directives Records FoundNo Advanced Directives Records FoundNo Advanced Directives Records Found Reason for Referral Specialty Diagnoses / Procedures Referred By Contac t Referred To Contact Diagnoses Positive colorectal cancer screening using Cologuard test Mathew Allen, COMPOSER TEACHING ARTIST-IN HOME AIDE [address] [place] [address] Referral ID Status Reason Start Date Expiration Date V isits Requested Visits Authorized [id number] Pending Review 1 1 Additional Source Comments INFORMATION SOURCE (unrecogn ized section and content) DATE CREATED AUTHOR 01/01/2018 [facility] DATE CREATED AUTHOR AUTHOR'S ORGANIZ ATION 01/06/2018 [facility] DATE CREATED AUTHOR AUTHOR'S ORGANIZ ATION 01/07/2018 [facility] DATE CREATED AUTHOR AUTHOR'S ORGANIZ ATION 08/10/2023 [facility] DATE CREATED AUTHOR AUTHOR'S ORGANIZ ATION 08/18/2023 [facility] Care Teams (unrecognized sec tion and content) [employer] Developer Relationship Specialty Start Date End Date Mehrdad Salas Jr., DO [address] [place] [id number] PCP - General Internal Medicine 09/25/17 [employer] Developer Relationship Specialty Start Date End Date Mehrdad Salas Jr., DO [address] [place] [id number] PCP - General Internal Medicine 09/25/17 Reason for Visit (unrecogniz ed section and content) Reason Comments Positive Cologuard Positive Cologuard, last colon 20 years ago, referred by Dr. Salas FOR RECORDS PERTAINING TO PATIENTS WHO ARE OR HAVE BEEN ENROLLED IN A CHEMICAL DEPENDENCY/SUBSTANCEABUSE PROGRAM, SOME INFORMATION MAY BE OMITTED. This clinical summary was aggregated from multiple sources. Caution should be exercised in using it in the provision of clinical care. This summary normalizes information from multiple sources, and as a consequence, information in this document may materially change the coding, format and clinical context of patient data. In addition, data may be omitted in some cases. CLINICAL DECISIONS SHOULD BE BASED ON THE PRIMARY CLINICAL RECORDS. [facility] [employer] [facility]. provides no warranty or guarantee of the accuracy or completeness of information in this document.
[2023-09-03 08:01] VITALS: BP 167/84; PULSE 101; RESP 18; TEMP 36.2; O2SAT 97; BMI 29.3
[2023-09-03] MEDS: LACTATED RINGER'S SOLUTION 1,000 ML 50 ML IV (08:05)
--- NOTE | 2023-09-03 09:19 | PM.GSPRC ---
Date of procedure: 09/03/23 Indications for Procedure: positive [place] guard Pre-op diagnosis: positive cologuard Post-op diagnosis: other (diverticulosis minimal sigmoid colon; fundic gland polyp of stomach) Procedure: EGD with biopsy antrum Colonoscopy Findings: as above Anesthesia: MAC Surgeon: Chau Ribeiro Procedure Summary: PROCEDURE: The patient was taken to the Endoscopy Suite, placed in the left lateral recumbent position, given IV sedation as above. the Olympus EGD scope was advanced under direct visualization into the posterior pharynx esophagus stomach through the pylorus into the 1st 2nd 3rd and 4th portions of the duodenum which were completely normal. The scope was returned to the stomach retroflexed in the scope showing a small fundic gland polyp was biopsied and hemostasis maintained. The rest of the stomach appeared normal with no ulcers or gross tumors seen. Random biopsies of the antrum were taken. The scope was then slowly withdrawn to the distal esophagus where there might be a small Schatzki's ring but no evidence of esophagitis and the rest the esophagus was normal. The scope was removed from the mouth. A rectal digital exam was performed. The sphincter tone was found to be normal. No rectal masses were appreciated. The Olympus video colonoscope was advanced under direct visualization to the rectum, sigmoid colon, descending colon, transverse colon and ascending colon to the ileocecal valve. The underside of the valve was seen. Appendiceal lumen was visualized. The prep was adequate. The scope was slightly difficult and abdominal pressure had to be placed on the patient's abdomen and she also was placed in the supine position in order to get to the cecum.The scope was slowly withdrawn with air being desufflated as it was withdrawn. No gross tumors or polyps were seen.she had a few scattered diverticuli in the descending and sigmoid colon.The patient tolerated the procedure well and went to the Recovery Area in satisfactory condition. I recommend the patient use a bulk laxative on a regular basis and follow up as needed. I would not recommend patient return for screening scope since she is over age 68 she has problems. Estimated blood loss (mL): 0 Complications: No Condition: stable Disposition: PACU
[2023-09-03 10:09] VITALS: BP 146/80; PULSE 115; RESP 12; TEMP 36.3; O2SAT 98
[2023-09-03 10:24] VITALS: BP 120/81; PULSE 110; RESP 16; O2SAT 96
[2023-09-03 10:39] VITALS: BP 145/76; PULSE 102; RESP 19; O2SAT 96
[2023-09-04 13:35] LABS: H Pylori Tissue, Urease Negative
== END 2023-09-03 10:39 | disposition home or self-care (01) ==
PROVIDERS: PCP Internal Medicine; Visit Provider Surgery
PROC: (CPT 43239; principal; 2023-09-03 08:40)
DX: R19.5 Other fecal abnormalities (principal); K57.30 Diverticulosis of large intestine without perforation or abscess without bleeding; K21.9 Gastro-esophageal reflux disease without esophagitis; K31.7 Polyp of stomach and duodenum; F32.A Depression, unspecified; Z90.711 Acquired absence of uterus with remaining cervical stump; Z79.82 Long term (current) use of aspirin; Z79.899 Other long term (current) drug therapy; Z87.891 Personal history of nicotine dependence; E07.9 Disorder of thyroid, unspecified
CPT/HCPCS: 43239; 45378; 87077; 88305; 99999; J2704